=== PATIENT | female | born 1990 | race African-American/Black ===

== ENCOUNTER 2022-10-03 13:57 | Emergency (ER) | payer OTHER ==
[~2022-10-03] VITALS: Ht 175.3 cm; Wt 65.9 kg
[2022-10-03] MEDS ORDERED: DIVA500T53 PO (14:03)
[2022-10-03] MEDS ORDERED: DOXY50 PO (14:03)
[2022-10-03 14:12] VITALS: BP 131/93
[2022-10-03] MEDS ORDERED: LIDOCAINE 1% 10 ML VIAL ID ONE (14:15)
[2022-10-03] MEDS ORDERED: BACITRACIN 0.9 GM PACKET OINTMENT TP ONE (14:45)
== END 2022-10-03 15:00 | disposition home or self-care (01) ==
LOC: EMS 14:02
DX: S61.306A Unspecified open wound of right little finger with damage to nail, initial encounter (principal); F31.9 Bipolar disorder, unspecified; F12.90 Cannabis use, unspecified, uncomplicated; Z98.890 Other specified postprocedural states; X58.XXXA Exposure to other specified factors, initial encounter; Y93.89 Activity, other specified; Y92.89 Other specified places as the place of occurrence of the external cause; Y99.8 Other external cause status
CPT/HCPCS: 99283; J3490

== ENCOUNTER 2023-08-02 16:51 | Emergency (ER) | payer OTHER ==
[~2023-08-02] VITALS: Ht 175.3 cm; Wt 61.4 kg
[~2023-08-02 16:51] MED LIST: DIVA500T53 PO; DOXY50 PO
[2023-08-02 17:14] VITALS: TEMP 98.2
[2023-08-02 19:05] VITALS: BP 129/73; PULSE 92; RESP 16
[2023-08-02] MEDS: IBUPROFEN 600 MG TABLET PO ONE (19:51)
[2023-08-02 20:11] LABS: BASOPHILS % (AUTO) 0.4 % (0.0-2.0); EOSINOPHILS % (AUTO) 2.6 % (1.0-6.0); HEMATOCRIT 41.3 % (36-46); HEMOGLOBIN 13.9 g/dL (12.0-16.0); LYMPHOCYTES # (AUTO) 1.6 K/uL (1.0-4.8); LYMPHOCYTES % (AUTO) 24.8 % (22.0-44.0); MEAN CORPUSCULAR HEMOGLOBIN 29.1 pg (26.0-34.0); MEAN CORPUSCULAR HGB CONC 33.6 G/dL (31.0-37.0); MEAN CORPUSCULAR VOLUME 87 fL (80-100); MONOCYTES # (AUTO) 0.4 K/uL (0.1-1.0); MONOCYTES % (AUTO) 5.5 % (2.0-9.0); NEUTROPHILS # (AUTO) 4.4 K/uL (1.8-7.7); NEUTROPHILS % (AUTO) 66.7 % (40.0-70.0); PLATELET COUNT (AUTO) 235 K/uL (150-450); RED BLOOD CELL COUNT(AUTO) 4.78 MIL/uL (4.00-5.20); WHITE BLOOD COUNT (AUTO) 6.7 K/uL (4.5-11.0)
[2023-08-02 20:22] LABS: ANION GAP 11 mmol/L (8-16); CALCIUM, TOTAL 9.5 mg/dL (8.8-10.5); CARBON DIOXIDE 28 mmol/L (22-29); CHLORIDE 100 mmol/L (98-107); CREATININE 0.98 mg/dL (0.60-1.30); GLOMERULAR FILTR. RATE CALC > 60 mL/min (>60); GLUCOSE,RANDOM 86 mg/dL (70-110); POTASSIUM 4.2 mmol/L (3.5-5.1); SODIUM SERUM 139 mmol/L (136-145); UREA NITROGEN, BLOOD 16 mg/dL (7-18)
[2023-08-02 20:28] LABS: ALANINE AMINOTRANSFERASE 22 U/L (12-78); ALKALINE PHOSPHATASE 54 U/L (46-116); ASPARTATE AMINOTRANSFERASE 16 U/L (15-37); BILIRUBIN,TOTAL 0.5 mg/dL (0.1-1.0)
[2023-08-02] MEDS ORDERED: CYCL-448 PO (21:47)
== END 2023-08-02 21:59 | disposition home or self-care (01) ==
LOC: EMS 17:00
DX: S19.9XXA Unspecified injury of neck, initial encounter (principal); M54.9 Dorsalgia, unspecified; F31.9 Bipolar disorder, unspecified; F12.90 Cannabis use, unspecified, uncomplicated; Z98.890 Other specified postprocedural states; Y08.89XA Assault by other specified means, initial encounter; Y93.89 Activity, other specified; Y92.89 Other specified places as the place of occurrence of the external cause; Y99.8 Other external cause status
CPT/HCPCS: 71045; 72040; 72072; 80053; 85025; 99284; 36415-L1; 36415-TC

== ENCOUNTER 2023-09-07 23:21 | Emergency (ER) | payer OTHER ==
[~2023-09-07] VITALS: Ht 175.3 cm; Wt 59.1 kg
[~2023-09-07 23:21] MED LIST changes: +CYCL-448 PO; -DIVA500T53 PO; -DOXY50 PO
[2023-09-07 23:24] VITALS: BP 168/99; PULSE 113; RESP 16; TEMP 98
== END 2023-09-08 00:45 | disposition home or self-care (01) ==
LOC: EMS 23:22
DX: S80.12XA Contusion of left lower leg, initial encounter (principal); F31.9 Bipolar disorder, unspecified; F12.90 Cannabis use, unspecified, uncomplicated; Z98.890 Other specified postprocedural states; Y08.89XA Assault by other specified means, initial encounter; Y93.89 Activity, other specified; Y92.89 Other specified places as the place of occurrence of the external cause; Y99.8 Other external cause status
CPT/HCPCS: 99281; Z7502

== ENCOUNTER 2024-06-23 19:56 | Emergency (ER) | payer OTHER ==
[~2024-06-23] VITALS: Ht 175.3 cm; Wt 54.5 kg
[2024-06-23 21:55] VITALS: BP 118/69; PULSE 63; RESP 18; TEMP 98; O2SAT 100
[2024-06-24] MEDS ORDERED: BACITRACIN 0.9 GM PACKET OINTMENT TP ONE (02:37)
[2024-06-24] MEDS: BACITRACIN ZINC/POLYMYXIN B 14.2 GM OINTMENT TP ONE (02:59)
== END 2024-06-24 03:45 | disposition home or self-care (01) ==
LOC: EMS 20:05
DX: S01.81XA Laceration without foreign body of other part of head, initial encounter (principal); F31.9 Bipolar disorder, unspecified; F12.90 Cannabis use, unspecified, uncomplicated; X58.XXXA Exposure to other specified factors, initial encounter; Y93.89 Activity, other specified; Y92.89 Other specified places as the place of occurrence of the external cause; Y99.8 Other external cause status
CPT/HCPCS: 99282; Z7502; Z7610

== ENCOUNTER 2024-07-25 11:50 | Emergency (ER) | payer OTHER ==
[~2024-07-25] VITALS: Ht 175.3 cm; Wt 61.4 kg
[2024-07-25 12:03] VITALS: BP 120/72; PULSE 85; RESP 18; TEMP 97.8; O2SAT 100
[2024-07-25] MEDS: AMOX TR/POT CLAV 875 MG/125 MG TABLET PO ONE (12:16)
[2024-07-25] MEDS: PERTUSS(ACELL),DIPH,TET/PF 0.5 ML SYRINGE [ADULT] IM. ONE (12:17)
[2024-07-25] MEDS: POVIDONE-IODINE 10% 15 ML SOLUTION UD TP ONE (12:34)
[2024-07-25] MEDS ORDERED: IBUP-1492 PO (12:38)
[2024-07-25] MEDS ORDERED: AMOX-457 PO (12:38)
== END 2024-07-25 12:52 | disposition home or self-care (01) ==
LOC: EMS 11:52
DX: S61.251A Open bite of left index finger without damage to nail, initial encounter (principal); F31.9 Bipolar disorder, unspecified; F60.3 Borderline personality disorder; W55.01XA Bitten by cat, initial encounter; Y93.89 Activity, other specified; Y92.89 Other specified places as the place of occurrence of the external cause; Y99.8 Other external cause status
CPT/HCPCS: 99283; 90715; 90471; A4247

== ENCOUNTER 2024-07-25 20:19 | Emergency (ER) | payer OTHER ==
[~2024-07-25] VITALS: Ht 175.3 cm; Wt 61.4 kg
[~2024-07-25 20:19] MED LIST changes: +AMOX-457 PO; +IBUP-1492 PO
[2024-07-25] MEDS: TraMADol HCL 50 MG TABLET PO ONE (22:56)
[2024-07-25] MEDS: CefTRIAXone 1 GM/DEXTROSE 50 ML IV ONE (22:57)
[2024-07-25 23:53] VITALS: BP 118/68; PULSE 75; RESP 15; TEMP 97.3; O2SAT 100
== END 2024-07-26 00:41 | disposition home or self-care (01) ==
LOC: EMS 20:22
DX: S61.251A Open bite of left index finger without damage to nail, initial encounter (principal); L03.012 Cellulitis of left finger; W55.01XA Bitten by cat, initial encounter; Y93.89 Activity, other specified; Y92.89 Other specified places as the place of occurrence of the external cause; Y99.8 Other external cause status
CPT/HCPCS: 99284; 96365; 29130; J0696